=== PATIENT | male | born 1970 | race Caucasian/White ===

== ENCOUNTER 2018-06-24 00:41 | Emergency (ER) | payer SELFPAY ==
[~2018-06-24] VITALS: Ht 165.1 cm; Wt 100.0 kg
[2018-06-24] MEDS ORDERED: ASPIRIN 325MG EC TABLET PO ONE (02:15)
[2018-06-24 02:54] LABS: CHLORIDE 106 mEq/L (98-107)
[2018-06-24 03:14] LABS: BASOPHILS % 0.5 % (0.0-2.0); EOSINOPHILS % 2.5 % (0.0-5.0); HEMATOCRIT. 36.2 % (42.0-52.0); HEMOGLOBIN. 12.3 g/dL (14.0-18.0); LYMPHOCYTES % 40.7 % (20.0-50.0); MEAN CORPUSCULAR HEMOGLOBIN 27.9 pg (28.0-32.0); MEAN CORPUSCULAR VOLUME 82.4 fL (80.0-94.0); MEAN PLATELET VOLUME 7.5 fl (7.4-10.4); MONOCYTES % 8.7 % (2.0-8.0); NEUTROPHILS % 47.6 % (40.0-76.0); PLATELET 254 x1000/uL (130-400); RED BLOOD CELL COUNT 4.39 mill/uL (4.7-6.1); RED CELL DISTRIBUTION WIDTH 13.7 % (11.6-14.6)
[2018-06-24 03:19] LABS: CLARITY URINE CLEAR (CLEAR); COLOR URINE YELLOW (YELLOW); KETONES URINE NEGATIVE (NEGATIVE); LEUKOCYTE ESTERASE URINE NEGATIVE (NEGATIVE); NITRITE URINE NEGATIVE (NEGATIVE); OCCULT BLOOD URINE 2+ (NEGATIVE); PH URINE 5.5 (4.5-8.0); PROTEIN URINE NEGATIVE (NEGATIVE); SPECIFIC GRAVITY URINE 1.005 (1.005-1.030); UROBILINOGEN URINE 0.2 E.U./dL (0.2-1.0)
[2018-06-24] MEDS ORDERED: DOXYCYCLINE HYCLATE 100MG CAPSULE PO SCH (05:45)
[2018-06-24] MEDS ORDERED: CEFTRIAXONE SODIUM 250 MG/VIAL IM SCH (05:45)
[2018-06-24 08:40] VITALS: BP 125/74
== END 2018-06-24 08:43 | disposition home or self-care (01) ==
LOC: ER 00:41 → CANBEDREQ 09:20
DX: R07.89 Other chest pain (principal); N43.3 Hydrocele, unspecified; I86.1 Scrotal varices
CPT/HCPCS: 36415; 71045; 76870; 80053; 81003; 83880; 84484; 85025; 93005; 93976; 96372; 99284; J0696